=== PATIENT | female | born 1970 | race African-American/Black ===

== ENCOUNTER 2019-03-27 10:00 | Emergency (ER) | payer MEDICARE ==
[2019-03-27 10:06] VITALS: BP 159/74; PULSE 84; RESP 18; TEMP 98.2
[2019-03-27] MEDS ORDERED: Acetaminophen-Codeine 300-30mg TAB PO STA (10:39)
--- NOTE | 2019-03-27 10:59 | ED ---
General Adult HPI - General Chief complaint: Extremity Injury, Upper Stated complaint: rt arm pain Time Seen by Provider: 03/27/19 10:17 Source: patient Mode of arrival: ambulatory Limitations: no limitations - History of Present Illness Initial comments: Patient is a 48-year-old female presenting to the emergency department with a chief complaint of right arm pain. Patient reports the symptoms began approximately 5 days ago and and have gradually increased in severity. Patient reports the pain starts near the neck and it hurts all along the right arm. Patient has full range of motion. Patient does report a "funny feeling". Patient states that she has numbness and tingling there is well. Patient does report full range of motion. Patient denies similar symptoms to any other extremity. Patient denies any trauma to the region. - Related Data Allergies Allergy/AdvReac Type Severity Reaction Status Date / Time Penicillins Allergy Anaphylaxis Verified 03/27/19 10:06 Review of Systems ROS Statement: Those systems with pertinent positive or pertinent negative responses have been documented in the HPI. ROS Other: All systems not noted in ROS Statement are negative. Past Medical History Past Medical History: Coronary Artery Disease (CAD), CVA/TIA, Hyperlipidemia, Hypertension History of Any Multi-Drug Resistant Organisms: None Reported Past Surgical History: Section Past Psychological History: Anxiety, Depression Smoking Status: Former smoker Past Alcohol Use History: None Reported Past Drug Use History: None Reported General Exam Limitations: no limitations General appearance: alert, in no apparent distress Head exam: Present: atraumatic, normocephalic, normal inspection Eye exam: Present: normal appearance, PERRL, EOMI Pupils: Present: normal accommodation ENT exam: Present: normal exam, normal oropharynx, mucous membranes moist, TM's normal bilaterally, normal external ear exam Neck exam: Present: normal inspection, tenderness (Right paraspinal cervical tenderness), full ROM Respiratory exam: Present: normal lung sounds bilaterally Cardiovascular Exam: Present: regular rate, normal rhythm, normal heart sounds Extremities exam: Present: normal inspection, full ROM, tenderness (Soft tissue tenderness along the full right arm along the shoulder and the right-sided neck.), normal capillary refill, other (+2 ulnar and radial pulses bilaterally.) Back exam: Present: normal inspection, full ROM Neurological exam: Present: alert, oriented X3, CN II-XII intact, normal gait, reflexes normal Psychiatric exam: Present: normal affect, normal mood Skin exam: Present: warm, intact, normal color Course Vital Signs 03/27/19 10:01 Temperature 98.2 F Pulse Rate 84 Respiratory 18 Rate Blood Pressure 159/74 O2 Sat by Pulse 97 Oximetry Medical Decision Making - Medical Decision Making Patient is a 48-year-old female presenting to the emergency department with a chief complaint of right arm pain. The pain has been ongoing for the past 5 days with gradually increasing severity. Patient does report a "funny feeling" with numbness and tingling. Patient also appears to have the same feeling close to the cervical spine. Patient has full range of motion in neck. Physical examination patient is neurovascularly intact in her right arm. i pinched the patient and she was able to feel it without any hesitation. i have low suspicion for actual numbness in her arm. Patient has full range of motion. Patient x- ray of the cervical spine is indicative for narrowing in spine. I suspect the patient to have a cervical radiculopathy which is causing her the symptoms. Patient advised to follow-up with orthopedics and further management. Strict return parameters were thoroughly discussed the patient was understanding and agreeable. Case discussed with physician. Disposition Clinical Impression: Cervical radiculopathy Disposition: HOME SELF-CARE Condition: Stable Instructions (If sedation given, give patient instructions): Cervical Radiculopathy (ED) Additional Instructions: Please take medication as directed. Alternate between Tylenol and ibuprofen for pain control. Please follow-up with orthopedics. Please return to emergency department if symptoms worsen. Is patient prescribed a controlled substance at d/c from ED?: No Referrals: Kaylin Feliciano DO [Primary Care Provider] - 1-2 days Dean Singh DO [Medical Doctor] - 1-2 days Time of Disposition: 11:49
--- NOTE | 2019-03-27 11:17 | XR ---
EXAMINATION TYPE: XR cervical spine comp DATE OF EXAM: 03/27/2019 COMPARISON: None HISTORY: 48-year-old female pain and discomfort in the right arm TECHNIQUE: 5 views FINDINGS: No predental space widening or prevertebral soft tissue swelling. Reversal of the normal cervical belen dosis but with preserved alignment. Bulky anterior plate spondylosis at C5-C6. Corresponding uncovert ebral joint arthropathy at this level. This results in mild bony neuroforaminal narrowing, left great er than right, at this level. Odontoid view shows no gross abnormal body. IMPRESSION: 1. Anterior endplate spondylosis and uncovertebral joint arthropathy at C5-C6 with reversal of the no rmal cervical lordosis. 2. Mild bony neuroforaminal narrowing, left greater than right, at C5-C6.
[2019-03-27] MEDS ORDERED: ACET/COD 300 MG/30 MG STARTER PACK 6 TAB BTL PO STA (12:17)
== END 2019-03-27 11:55 | disposition home or self-care (01) ==
LOC: EC 10:00
DX: M54.12 Radiculopathy, cervical region (principal); M48.02 Spinal stenosis, cervical region; Z87.891 Personal history of nicotine dependence; Z88.0 Allergy status to penicillin
CPT/HCPCS: 72050; 99283

== ENCOUNTER 2019-09-03 13:50 | Emergency (ER) | payer MEDICARE, OTHER ==
[2019-09-03 14:03] VITALS: TEMP 98.7
[2019-09-03] MEDS ORDERED: LIDOCAINE 1% INJ 10MG/ML (20 ML MDV) SQ ONE (14:19)
--- NOTE | 2019-09-03 14:24 | ED ---
General Adult HPI - General Chief complaint: Recheck/Abnormal Lab/Rx Stated complaint: High Blood Pressure Time Seen by Provider: 09/03/19 14:08 Source: patient, family Mode of arrival: wheelchair Limitations: no limitations - History of Present Illness Initial comments: Patient is a 48-year-old female presenting to the emergency Department with chief complaint of vaginal discomfort. Patient states she went to [facility] earlier today for vaginal symptoms but was sent to the ED for high blood pressure. Patient states her blood pressure might be elevated due to a "bump" on her vagina. Patient states it is gradually grown in size over the last 2 years. Patient does report mild to moderate pain with discharge she started in the last day. States she has been in a monogamous relationship but is concerned for STD exposure from her partner. Patient states she was prescribed Diflucan and Flagyl from the urgent care. States gonorrhea and chlamydia samples were sent from the urgent care. States that is slightly uncomfortable when walking. Patient denies taking medication to alleviate the symptoms. Denies any vaginal bleeding, increased urgency frequency or dysuria. Denies any fevers or chills. Denies any blurry vision, headaches, chest pain, shortness of breath. She does report some dizziness prior to ED arrival which has since resolved. - Related Data Allergies Allergy/AdvReac Type Severity Reaction Status Date / Time Penicillins Allergy Anaphylaxis Verified 09/03/19 14:02 Review of Systems ROS Statement: Those systems with pertinent positive or pertinent negative responses have been documented in the HPI. ROS Other: All systems not noted in ROS Statement are negative. Past Medical History Past Medical History: Coronary Artery Disease (CAD), CVA/TIA, Hyperlipidemia, Hypertension History of Any Multi-Drug Resistant Organisms: None Reported Past Surgical History: Section Past Psychological History: Anxiety, Depression Smoking Status: Current every day smoker Past Alcohol Use History: None Reported Past Drug Use History: None Reported General Exam Limitations: no limitations General appearance: alert, in no apparent distress Head exam: Present: atraumatic, normocephalic, normal inspection Eye exam: Present: normal appearance, PERRL, EOMI Pupils: Present: normal accommodation ENT exam: Present: normal exam Neck exam: Present: normal inspection, full ROM Respiratory exam: Present: normal lung sounds bilaterally Cardiovascular Exam: Present: regular rate, normal rhythm, normal heart sounds GI/Abdominal exam: Present: soft, tenderness (Suprapubic mild). Absent: distended Speculum exam: Present: vaginal bleeding (dark red blood seen at the vaginal vault). Absent: erythema, vaginal discharge, cervical discharge, foreign body, tissue, laceration By manual exam: Present: normal by manual exam, other (No signs of Bartholin's cyst/abscess. Slightly enlarged clitoris.). Absent: adnexal mass, uterine enlargement, uterine tenderness Extremities exam: Present: normal inspection, full ROM Back exam: Present: normal inspection, full ROM Neurological exam: Present: alert, oriented X3 Psychiatric exam: Present: normal affect, normal mood Skin exam: Present: warm, dry, intact, normal color Course Vital Signs 09/03/19 09/03/19 09/03/19 13:57 14:19 14:46 Temperature 98.7 F Pulse Rate 74 72 72 Respiratory 18 16 16 Rate Blood Pressure 187/121 166/88 166/78 O2 Sat by Pulse 100 100 100 Oximetry 09/03/19 15:27 Temperature Pulse Rate 70 Respiratory 16 Rate Blood Pressure 152/88 O2 Sat by Pulse 100 Oximetry EKG Findings - EKG Comments: EKG Findings:: Sinus rhythm, no ST changes. Ventricular rate 68, MD 188, QRS 82, QTC 425. Medical Decision Making - Medical Decision Making Patient is a 48-year-old female presenting to emergency Department with a chief complaint of vaginal discomfort. On exam no signs of Bartholin's cyst/abscess. Dark red blood noted in the vaginal vault. Last menstrual period was 2 weeks ago. Patient has no concern for . States she has not been active in a month. Patient is concerned for STD exposure. No antibiotic testing pending from the urgent care, however she was not treated for gonorrhea and chlamydia. I offered treatment for gonorrhea and chlamydia, patient complied. She was given Rocephin and azithromycin in the ED. UA is clean. Urine culture pending. Patient states she smoked a cigarette before coming to the ED. Initial blood pressure was elevated, however the patient was slightly anxious on initial evaluation. Blood pressure has improved throughout ED stay. 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 Return parameters thoroughly discussed with patient was standing and agreeable. Case discussed with physician. - Lab Data Lab Results 09/03/19 Range/Units 15:00 Urine Color Light Yellow Urine Appearance Clear (Clear) Urine pH 7.0 (5.0-8.0) Ur Specific [place] 1.014 (1.001-1.035) Urine Protein Negative (Negative) Urine Glucose (UA) Negative (Negative) Urine Ketones Negative (Negative) Urine Blood Negative (Negative) Urine Nitrite Negative (Negative) Urine Bilirubin Negative (Negative) Urine Urobilinogen <2.0 (<2.0) mg/dL Ur Leukocyte Esterase Negative (Negative) Disposition Clinical Impression: Vaginal discomfort, Possible exposure to STD Disposition: HOME SELF-CARE Condition: Stable Instructions (If sedation given, give patient instructions): Sexually Transmitted Diseases (ED) Additional Instructions: Follow up with your power reactor supervisor. Return to emergency department if symptoms worsen. Is patient prescribed a controlled substance at d/c from ED?: No Referrals: None,Stated [Primary Care Provider] - 1-2 days Time of Disposition: 15:50
[2019-09-03 14:25] VITALS: RESP 16
[2019-09-03] MEDS ORDERED: cloNIDine HCL 0.1 MG TAB PO STA (14:26)
[2019-09-03 15:13] LABS: Appearance,Urine Clear (Clear); Bilirubin,Urine Negative (Negative); Blood,Urine Negative (Negative); Color,Urine Light Yellow; Glucose,Urine (UA) Negative (Negative); Ketones,Urine Negative (Negative); Leukocyte Esterase,Urine Negative (Negative); Nitrite,Urine Negative (Negative); Protein,Urine Negative (Negative); Specific Gravity,Urine 1.014 (1.001-1.035); Urobilinogen,Urine <2.0 mg/dL (<2.0)
[2019-09-03 15:28] VITALS: PULSE 70
[2019-09-03] MEDS ORDERED: CLINDAMYCIN 150 MG CAP PO STA (15:30)
[2019-09-03] MEDS ORDERED: cefTRIAXone 250 MG VIAL IM STA (15:34)
[2019-09-03] MEDS ORDERED: AZITHROMYCIN 250 MG TAB PO STA (15:35)
[2019-09-03 16:01] VITALS: BP 150/62
== END 2019-09-03 15:59 | disposition home or self-care (01) ==
LOC: EC 13:50
DX: N93.9 Abnormal uterine and vaginal bleeding, unspecified (principal); R10.30 Lower abdominal pain, unspecified; F17.200 Nicotine dependence, unspecified, uncomplicated; Z88.0 Allergy status to penicillin
CPT/HCPCS: 81003; 93005; 96372; 99283

== ENCOUNTER 2021-03-29 15:38 | Emergency (ER) | payer MEDICARE, OTHER ==
[2021-03-29 16:07] VITALS: TEMP 98
[2021-03-29 16:23] LABS: Glucose,Whole Blood 79 mg/dL (75-99)
[2021-03-29] MEDS ORDERED: ASPIRIN 81 MG PO STA (16:33)
[2021-03-29 17:03] LABS: Appearance,Urine Clear (Clear); Bilirubin,Urine Negative (Negative); Blood,Urine Negative (Negative); Color,Urine Light Yellow; Glucose,Urine (UA) Negative (Negative); Ketones,Urine Negative (Negative); Leukocyte Esterase,Urine Negative (Negative); Nitrite,Urine Negative (Negative); Protein,Urine Negative (Negative); Specific Gravity,Urine 1.008 (1.001-1.035); Urobilinogen,Urine <2.0 mg/dL (<2.0)
[2021-03-29 17:10] LABS: Calcium 9.8 mg/dL (8.4-10.2); Potassium 3.7 mmol/L (3.5-5.1); Total Bilirubin 0.6 mg/dL (0.2-1.3); Total Protein 6.9 g/dL (6.3-8.2)
[2021-03-29 17:16] LABS: INR 0.9 (<1.2); Partial Thromboplastin Time 24.5 sec (22.0-30.0); Prothrombin Time 9.7 sec (9.0-12.0)
[2021-03-29 17:20] LABS: Basophils % (A) 0 %; Eosinophils # (A) 0.1 k/uL (0-0.7); Eosinophils % (A) 1 %; HCT 37.3 % (34.0-46.0); HGB 12.1 gm/dL (11.4-16.0); Lymphocytes # (A) 2.2 k/uL (1.0-4.8); Lymphocytes % (A) 34 %; MCH 23.7 pg (25.0-35.0); MCHC 32.6 g/dL (31.0-37.0); MCV 72.8 fL (80.0-100.0); Mean Platelet Volume 7.9; Microcytosis Slight; Monocytes # (A) 0.4 k/uL (0-1.0); Monocytes % (A) 7 %; Neutrophils # (A) 3.6 k/uL (1.3-7.7); Neutrophils % (A) 56 %; Platelet Count 225 k/uL (150-450); RBC 5.12 m/uL (3.80-5.40); RDW 15.4 % (11.5-15.5); WBC 6.4 k/uL (3.8-10.6)
--- NOTE | 2021-03-29 17:32 | CT ---
EXAMINATION TYPE: CT brain wo con DATE OF EXAM: 03/29/2021 COMPARISON: None HISTORY: Speech disturbance and confusion. CT DLP: 1158.4 mGycm Automated exposure control for dose reduction was used. There is large area of hypodensity involving the left occipital lobe and left posterior temporal lobe related to old infarct. There is some enlargement of the left lateral ventricle. There is no mass ef fect or midline shift. There is no sign of intracranial hemorrhage. The calvarium is intact. There is normal aeration of the mastoid sinuses. 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 No acute intracranial abnormality.
--- NOTE | 2021-03-29 17:35 | XR ---
EXAMINATION TYPE: XR chest 2V DATE OF EXAM: 03/29/2021 COMPARISON: NONE HISTORY: Chest pain TECHNIQUE: 2 views FINDINGS: Heart and mediastinum are normal. Lungs are clear. Costophrenic angles are clear. There are no hilar masses. Bony thorax is intact. There are chest leads. IMPRESSION: Normal chest.
--- NOTE | 2021-03-29 20:15 | ED ---
General Adult HPI - General Chief complaint: Shortness of Breath Stated complaint: Difficulty breathing Time Seen by Provider: 03/29/21 16:17 Source: patient Mode of arrival: ambulatory Limitations: no limitations - History of Present Illness Initial comments: This 50-year-old female presents with daughter. Daughter relates that she wanted her mom evaluated as she was talking to her earlier and it seemed like she was having some slurred speech. The slurred speech has resolved at this point in time. Daughter states that it seemed like what you might see after somebody initially wakes up. The patient does have a history of previous CVA and has expressive aphasia since that incident approximately 6 years ago. She might of had another previous CVA subsequently. The patient incidentally notes that she has had occasional chest pains in the left side which is pressure-like at times and has been intermittent for one month. She has not sought any evaluation by primary care in this regard as of yet. She denies any history of cardiac disease. Occasional shortness of breath noted. No leg pain or swelling or history of DVT or PE. No fevers or chills. No other complaints or modifying factors. - Related Data Home Medications Medication Instructions Recorded Confirmed No Known Home Medications 03/29/21 03/29/21 Allergies Allergy/AdvReac Type Severity Reaction Status Date / Time Penicillins Allergy Anaphylaxis Verified 03/29/21 18:02 Review of Systems ROS Statement: Those systems with pertinent positive or pertinent negative responses have been documented in the HPI. ROS Other: All systems not noted in ROS Statement are negative. Past Medical History Past Medical History: Coronary Artery Disease (CAD), CVA/TIA, Hyperlipidemia, Hypertension History of Any Multi-Drug Resistant Organisms: None Reported Past Surgical History: Section Past Psychological History: Anxiety, Depression Smoking Status: Current every day smoker Past Alcohol Use History: None Reported Past Drug Use History: None Reported General Exam - General Exam Comments Initial Comments: GENERAL: The patient is well nourished and well hydrated. VITAL SIGNS: Heart rate, blood pressure, respiratory rate reviewed as recorded in nurse's notes. EYES: Pupils are round and reactive. Extraocular movements are intact. No conjunctival / lid redness or swelling. ENT: No external evidence of injury, swelling, or ecchymosis. Airway is patent. Throat is clear. NECK: Nontender. No swelling or evidence of injury. No subcutaneous emphysema. Trachea is midline. No thyroid mass. HEART: Regular rate and rhythm. Good peripheral pulses. LUNGS/CHEST: Breath sounds clear and equal bilaterally. No rales, rhonchi, or wheezes. No ecchymosis, subcutaneous emphysema, or tenderness. ABDOMEN: Abdomen soft without tenderness. No palpable masses or organomegaly. No peritoneal signs. No abdominal wall swelling or ecchymosis. EXTREMITIES: No extremity tenderness. Normal muscle tone and function. No thoracolumbar tenderness. NEUROLOGIC: Sensation is grossly intact. Cranial nerve exam reveals face is symmetrical, tongue is midline, speech is clear. Mild expressive aphasia which is chronic. Strength is normal and intact bilaterally. SKIN: No abrasions or ecchymosis is noted. No induration or masses noted. PSYCHIATRIC: Alert and oriented. Appropriate behavior and judgment. Limitations: no limitations Course Vital Signs 03/29/21 03/29/21 03/29/21 16:02 16:30 17:45 Temperature 98.0 F Pulse Rate 89 84 74 Respiratory 20 18 20 Rate Blood Pressure 161/90 133/85 156/96 O2 Sat by Pulse 98 100 96 Oximetry Medical Decision Making - Medical Decision Making The patient was seen and examined. All diagnostics were reviewed. The EKG shows a normal sinus rhythm at a rate of 83. Occasional PVC is noted. No ST elevation or other acute ST-T wave changes noted. The [place] intervals 162, QS duration is 80, and QTC intervals 460. The patient had an IV established and is placed on a color television console monitor. No ectopy is identified. The chest x-ray does not show any acute abnormality. Computed tomography scan of the brain was done and shows evidence of an old stroke but nothing acute. The cardiac laboratory evaluation was all within normal limits. A long discussion was held in regards to admission versus discharge for further workup. The patient would want to be discharged home. Daughter is also agreeable and does help with care of her mother. The risks and benefits are discussed in detail. They would prefer to follow-up closely with primary care and may need echocardiogram and stress test ing on an outpatient basis. They do agree to return if symptoms do reoccur or worsen. - Lab Data Result diagrams: 03/29/21 16:41 03/29/21 16:41 Lab Results 03/29/21 03/29/21 03/29/21 Range/Units 16:22 16:41 16:41 WBC 6.4 (3.8-10.6) k/uL RBC 5.12 (3.80-5.40) m/uL Hgb 12.1 (11.4-16.0) gm/dL Hct 37.3 (34.0-46.0) % MCV 72.8 L (80.0-100.0) fL MCH 23.7 L (25.0-35.0) pg MCHC 32.6 (31.0-37.0) g/dL RDW 15.4 (11.5-15.5) % Plt Count 225 (150-450) k/uL MPV 7.9 Neutrophils % 56 % Lymphocytes % 34 % Monocytes % 7 % Eosinophils % 1 % Basophils % 0 % Neutrophils # 3.6 (1.3-7.7) k/uL Lymphocytes # 2.2 (1.0-4.8) k/uL Monocytes # 0.4 (0-1.0) k/uL Eosinophils # 0.1 (0-0.7) k/uL Basophils # 0.0 (0-0.2) k/uL Microcytosis Slight PT 9.7 (9.0-12.0) sec INR 0.9 (<1.2) APTT 24.5 (22.0-30.0) sec D-Dimer 0.24 (<0.60) mg/L FEU Sodium (137-145) mmol/L Potassium (3.5-5.1) mmol/L Chloride (98-107) mmol/L Carbon Dioxide (22-30) mmol/L Anion Gap mmol/L BUN (7-17) mg/dL Creatinine (0.52-1.04) mg/dL Est GFR (CKD-EPI)AfAm (>60 ml/min/1.73 sqM) Est GFR (CKD-EPI)NonAf (>60 ml/min/1.73 sqM) Glucose (74-99) mg/dL POC Glucose (mg/dL) 79 (75-99) mg/dL POC Glu [employer] ID Alethea Faith Calcium (8.4-10.2) mg/dL Magnesium (1.6-2.3) mg/dL Total Bilirubin (0.2-1.3) mg/dL AST (14-36) U/L ALT (4-34) U/L Alkaline Phosphatase (38-126) U/L Troponin I (0.000-0.034) ng/mL NT-Pro-B Natriuret Pep pg/mL Total Protein (6.3-8.2) g/dL Albumin (3.5-5.0) g/dL Urine Color Urine Appearance (Clear) Urine pH (5.0-8.0) Ur Specific [place] (1.001-1.035) Urine Protein (Negative) Urine Glucose (UA) (Negative) Urine Ketones (Negative) Urine Blood (Negative) Urine Nitrite (Negative) Urine Bilirubin (Negative) Urine Urobilinogen (<2.0) mg/dL Ur Leukocyte Esterase (Negative) 03/29/21 03/29/21 03/29/21 Range/Units 16:41 16:41 16:41 WBC (3.8-10.6) k/uL RBC (3.80-5.40) m/uL Hgb (11.4-16.0) gm/dL Hct (34.0-46.0) % MCV (80.0-100.0) fL MCH (25.0-35.0) pg MCHC (31.0-37.0) g/dL RDW (11.5-15.5) % Plt Count (150-450) k/uL MPV Neutrophils % % Lymphocytes % % Monocytes % % Eosinophils % % Basophils % % Neutrophils # (1.3-7.7) k/uL Lymphocytes # (1.0-4.8) k/uL Monocytes # (0-1.0) k/uL Eosinophils # (0-0.7) k/uL Basophils # (0-0.2) k/uL Microcytosis PT (9.0-12.0) sec INR (<1.2) APTT (22.0-30.0) sec D-Dimer (<0.60) mg/L FEU Sodium 140 (137-145) mmol/L Potassium 3.7 (3.5-5.1) mmol/L Chloride 104 (98-107) mmol/L Carbon Dioxide 29 (22-30) mmol/L Anion Gap 7 mmol/L BUN 9 (7-17) mg/dL Creatinine 1.13 H (0.52-1.04) mg/dL Est GFR (CKD-EPI)AfAm 67 (>60 ml/min/1.73 sqM) Est GFR (CKD-EPI)NonAf 58 (>60 ml/min/1.73 sqM) Glucose 82 (74-99) mg/dL POC Glucose (mg/dL) (75-99) mg/dL POC Glu [employer] ID Calcium 9.8 (8.4-10.2) mg/dL Magnesium 2.0 (1.6-2.3) mg/dL Total Bilirubin 0.6 (0.2-1.3) mg/dL AST 19 (14-36) U/L ALT 11 (4-34) U/L Alkaline Phosphatase 69 (38-126) U/L Troponin I <0.012 (0.000-0.034) ng/mL NT-Pro-B Natriuret Pep pg/mL Total Protein 6.9 (6.3-8.2) g/dL Albumin 4.0 (3.5-5.0) g/dL Urine Color Light Yellow Urine Appearance Clear (Clear) Urine pH 8.0 (5.0-8.0) Ur Specific [place] 1.008 (1.001-1.035) Urine Protein Negative (Negative) Urine Glucose (UA) Negative (Negative) Urine Ketones Negative (Negative) Urine Blood Negative (Negative) Urine Nitrite Negative (Negative) Urine Bilirubin Negative (Negative) Urine Urobilinogen <2.0 (<2.0) mg/dL Ur Leukocyte Esterase Negative (Negative) 03/29/21 Range/Units 16:41 WBC (3.8-10.6) k/uL RBC (3.80-5.40) m/uL Hgb (11.4-16.0) gm/dL Hct (34.0-46.0) % MCV (80.0-100.0) fL MCH (25.0-35.0) pg MCHC (31.0-37.0) g/dL RDW (11.5-15.5) % Plt Count (150-450) k/uL MPV Neutrophils % % Lymphocytes % % Monocytes % % Eosinophils % % Basophils % % Neutrophils # (1.3-7.7) k/uL Lymphocytes # (1.0-4.8) k/uL Monocytes # (0-1.0) k/uL Eosinophils # (0-0.7) k/uL Basophils # (0-0.2) k/uL Microcytosis PT (9.0-12.0) sec INR (<1.2) APTT (22.0-30.0) sec D-Dimer (<0.60) mg/L FEU Sodium (137-145) mmol/L Potassium (3.5-5.1) mmol/L Chloride (98-107) mmol/L Carbon Dioxide (22-30) mmol/L Anion Gap mmol/L BUN (7-17) mg/dL Creatinine (0.52-1.04) mg/dL Est GFR (CKD-EPI)AfAm (>60 ml/min/1.73 sqM) Est GFR (CKD-EPI)NonAf (>60 ml/min/1.73 sqM) Glucose (74-99) mg/dL POC Glucose (mg/dL) (75-99) mg/dL POC Glu [employer] ID Calcium (8.4-10.2) mg/dL Magnesium (1.6-2.3) mg/dL Total Bilirubin (0.2-1.3) mg/dL AST (14-36) U/L ALT (4-34) U/L Alkaline Phosphatase (38-126) U/L Troponin I (0.000-0.034) ng/mL NT-Pro-B Natriuret Pep 306 pg/mL Total Protein (6.3-8.2) g/dL Albumin (3.5-5.0) g/dL Urine Color Urine Appearance (Clear) Urine pH (5.0-8.0) Ur Specific [place] (1.001-1.035) Urine Protein (Negative) Urine Glucose (UA) (Negative) Urine Ketones (Negative) Urine Blood (Negative) Urine Nitrite (Negative) Urine Bilirubin (Negative) Urine Urobilinogen (<2.0) mg/dL Ur Leukocyte Esterase (Negative) Disposition Clinical Impression: Slurred speech, Chest pain, History of CVA (cerebrovascular accident), Hypertension Disposition: HOME SELF-CARE Condition: Good Instructions (If sedation given, give patient instructions): Chest Pain (ED) Is patient prescribed a controlled substance at d/c from ED?: No Referrals: Donna Carlton MD [Primary Care Provider] - 1-2 days Time of Disposition: 20:15
[2021-03-29 20:17] VITALS: BP 154/99; PULSE 63; RESP 18
== END 2021-03-29 20:34 | disposition home or self-care (01) ==
LOC: EC 15:38
DX: R07.89 Other chest pain (principal); R47.81 Slurred speech; I10 Essential (primary) hypertension; I25.10 Atherosclerotic heart disease of native coronary artery without angina pectoris; E78.5 Hyperlipidemia, unspecified; F41.9 Anxiety disorder, unspecified; F32.9 Major depressive disorder, single episode, unspecified; F17.200 Nicotine dependence, unspecified, uncomplicated; Z86.73 Personal history of transient ischemic attack (TIA), and cerebral infarction without residual deficits; Z88.0 Allergy status to penicillin
CPT/HCPCS: 36415; 70450; 71046; 80053; 81003; 83735; 83880; 84484; 85025; 85379; 85610; 85730; 93005; 99285